=== PATIENT | female | born 1950 | race Caucasian/White ===

== ENCOUNTER 2018-04-10 09:53 | Day surgery (SDC) | payer MEDICARE ==
[~2018-04-10] VITALS: Ht 167.6 cm; Wt 55.3 kg
[2018-04-10] MEDS ORDERED: LACTATED RINGERS 1,000 ML IV SCH (10:41)
[2018-04-10 10:44] VITALS: BP 118/78
[2018-04-10] MEDS ORDERED: ESCI10TA10 PO (10:57)
[2018-04-10] MEDS ORDERED: ZOLP-413 PO (10:57)
[2018-04-10] MEDS ORDERED: MULT-658 PO (10:57)
[2018-04-10] MEDS ORDERED: GABA300C PO (10:57)
[2018-04-10] MEDS ORDERED: PANCREATIC ENZYME PO (10:57)
[2018-04-10] MEDS ORDERED: CLON1TAB PO (10:57)
[2018-04-10] MEDS ORDERED: MILK THISTLE PO (10:58)
[2018-04-10] MEDS ORDERED: LIDOCAINE-MPF 1%, 2ML INFIL ONE (11:00)
[2018-04-10] MEDS ORDERED: PROPOFOL 10 MG/ML, 20ML ONE ×3 (12:41→12:53)
== END 2018-04-10 15:15 | disposition home or self-care (01) ==
LOC: OUT 09:53
PROVIDERS: ATTEND Internal Medicine Geriatric Medicine
DX: K86.89 Other specified diseases of pancreas (principal); F32.9 Major depressive disorder, single episode, unspecified; Z90.49 Acquired absence of other specified parts of digestive tract; Z98.0 Intestinal bypass and anastomosis status; Z98.890 Other specified postprocedural states; Z79.899 Other long term (current) drug therapy
CPT/HCPCS: 43242; 88104; 88172; 88173; 88305; 88342; 93005; J2704; J7120; G0461